=== PATIENT | female | born 2000 | race Hispanic/Latino ===

== ENCOUNTER 2021-09-30 09:28 | Emergency (ER) | payer MEDICAID ==
[~2021-09-30] VITALS: Ht 162.6 cm; Wt 49.4 kg
[2021-09-30 09:53] LABS: APPEARANCE,URINE CLEAR (CLEAR); BILIRUBIN,URINE NEGATIVE (NEGATIVE); COLOR,URINE YELLOW (YELLOW); GLUCOSE, URINE (UA) NEGATIVE (NEGATIVE); HCG,QUALITATIVE URINE POSITIVE (NEGATIVE); KETONES,URINE 15 mg/dL (NEGATIVE); LEUKOCYTE ESTERASE ,URINE NEGATIVE (NEGATIVE); NITRATE,URINE NEGATIVE (NEGATIVE); OCCULT BLOOD,URINE MODERATE (NEGATIVE); PROTEIN,URINE NEGATIVE (NEGATIVE); UROBILINOGEN,URINE 0.2 mg/dL (0.2-1.0)
[2021-09-30 09:58] LABS: BACTERIA,URINE Rare /HPF (None Seen); RBC,URINE 0-1 /HPF (0-1); SQUAMOUS EPITHELIAL CELL,UR Rare /HPF (0-2); WBC,URINE 0-1 /HPF (0-1)
[2021-09-30] MEDS ORDERED: 0.9%NACL 1000ML 1,000 ML IV SCH (10:00)
[2021-09-30 10:08] LABS: BASOPHILS % (AUTO) 0.5 % (0.0-5.0); EOSINOPHILS % (AUTO) 0.5 % (0.0-8.0); HEMATOCRIT 35.5 % (36-48); LYMPHOCYTES % (AUTO) 23.7 % (21.0-51.0); MEAN CORPUSCULAR HEMOGLOBIN 28.6 pg (27.0-33.0); MEAN CORPUSCULAR HGB CONC 33.8 g/dL (32.0-36.0); MEAN CORPUSCULAR VOLUME 84.7 fL (80-100); MONOCYTES % (AUTO) 5.7 % (3.0-13.0); NEUTROPHILS % (AUTO) 69.1 % (40.0-77.0); PLATELET COUNT (AUTO) 219 K/uL (130-400); RED BLOOD CELL COUNT(AUTO) 4.19 MIL/uL (4.00-5.50); RED CELL DISTRIBUTION WIDTH 13.1 % (11.0-15.5); WHITE BLOOD COUNT (AUTO) 7.9 K/uL (4.8-10.8)
[2021-09-30 10:17] LABS: CREATININE 0.6 mg/dL (0.5-1.5); POTASSIUM 3.2 mmol/L (3.5-5.1)
[2021-09-30 10:48] LABS: ALBUMIN 3.9 g/dL (3.5-5.0); TOTAL PROTEIN, SERUM 7.9 g/dL (6.0-8.3)
[2021-09-30 12:20] VITALS: BP 104/67
== END 2021-09-30 12:31 | disposition home or self-care (01) ==
LOC: EDH 09:28
DX: O20.0 Threatened abortion (principal); Z3A.09 9 weeks gestation of pregnancy
CPT/HCPCS: 99284; 96360; 76801; 80053; 84702; 85025; 86850; 86900; 86901; 81001; 81025; 36415; J7030; 96361

== ENCOUNTER 2023-04-21 10:27 | Observation (INO) | payer MEDICAID ==
[~2023-04-21] VITALS: Ht 162.6 cm; Wt 69.9 kg
[~2023-04-21 10:27] MED LIST: FERR-72 PO; IBUP-2088 PO; PREN1TAB26 PO
[2023-04-21 11:20] VITALS: BP 111/68; PULSE 94; RESP 16
[2023-04-21 13:14] LABS: APPEARANCE,URINE CLOUDY (CLEAR); BILIRUBIN,URINE NEGATIVE (NEGATIVE); COLOR,URINE YELLOW (YELLOW); GLUCOSE, URINE (UA) TRACE mg/dL (NEGATIVE); KETONES,URINE NEGATIVE (NEGATIVE); LEUKOCYTE ESTERASE ,URINE 500 Leu/uL (NEGATIVE); NITRATE,URINE NEGATIVE (NEGATIVE); OCCULT BLOOD,URINE NEGATIVE (NEGATIVE); PH,URINE 6.5 (5.0-8.0); PROTEIN,URINE 30 mg/dL (NEGATIVE)
[2023-04-21 13:21] LABS: ADD UA MICROSCOPIC YES
[2023-04-21 13:22] LABS: BACTERIA,URINE FEW /HPF (None Seen); MUCUS,URINE FEW LPF (None Seen); SQUAMOUS EPITHELIAL CELL,UR MANY /HPF (0-2)
== END 2023-04-21 13:00 | disposition home or self-care (01) ==
LOC: EDH 10:27 → LDH 10:28
PROVIDERS: ADMIT Obstetrics & Gynecology; ATTEND Obstetrics & Gynecology
DX: O26.893 Other specified pregnancy related conditions, third trimester (principal); N89.8 Other specified noninflammatory disorders of vagina; Z3A.35 35 weeks gestation of pregnancy; Z79.899 Other long term (current) drug therapy
CPT/HCPCS: 87088; 81001; G0378

== ENCOUNTER 2023-05-07 16:59 | Observation (INO) | payer MEDICAID ==
[~2023-05-07] VITALS: Ht 162.6 cm; Wt 68.9 kg
[2023-05-07 16:59] VITALS: BP 107/72; PULSE 76; RESP 20
[2023-05-07 17:53] LABS: APPEARANCE,URINE CLEAR (CLEAR); BILIRUBIN,URINE NEGATIVE (NEGATIVE); COLOR,URINE LIGHT-YELLOW (YELLOW); GLUCOSE, URINE (UA) NEGATIVE (NEGATIVE); KETONES,URINE NEGATIVE (NEGATIVE); LEUKOCYTE ESTERASE ,URINE 25 Leu/uL (NEGATIVE); NITRATE,URINE NEGATIVE (NEGATIVE); OCCULT BLOOD,URINE NEGATIVE (NEGATIVE); PROTEIN,URINE 10 mg/dL (NEGATIVE); UROBILINOGEN,URINE 0.2 mg/dL (0.2-1.0)
[2023-05-07 17:55] LABS: ADD UA MICROSCOPIC YES
[2023-05-07 17:57] LABS: BACTERIA,URINE RARE /HPF (None Seen); MUCUS,URINE RARE LPF (None Seen); SQUAMOUS EPITHELIAL CELL,UR RARE /HPF (0-2)
== END 2023-05-07 18:33 | disposition home or self-care (01) ==
LOC: EDH 16:59 → LDH 17:00
PROVIDERS: ADMIT Obstetrics & Gynecology; ATTEND Obstetrics & Gynecology
DX: O62.9 Abnormality of forces of labor, unspecified (principal); O26.893 Other specified pregnancy related conditions, third trimester; M54.9 Dorsalgia, unspecified; Z3A.38 38 weeks gestation of pregnancy
CPT/HCPCS: 81001; G0379; G0378

== ENCOUNTER 2023-05-17 01:11 | Inpatient (IN) | payer MEDICAID ==
[~2023-05-17] VITALS: Ht 162.6 cm; Wt 72.1 kg
[2023-05-17 01:34] LABS: BILIRUBIN,URINE NEGATIVE (NEGATIVE); COLOR,URINE LIGHT-YELLOW (YELLOW); GLUCOSE, URINE (UA) NEGATIVE (NEGATIVE); KETONES,URINE NEGATIVE (NEGATIVE); LEUKOCYTE ESTERASE ,URINE 250 Leu/uL (NEGATIVE); NITRATE,URINE NEGATIVE (NEGATIVE); OCCULT BLOOD,URINE SMALL (NEGATIVE); PH,URINE 6.5 (5.0-8.0); PROTEIN,URINE NEGATIVE (NEGATIVE); UROBILINOGEN,URINE 0.2 mg/dL (0.2-1.0)
[2023-05-17 01:50] LABS: ADD UA MICROSCOPIC YES; APPEARANCE,URINE SLIGHTLY CLOUDY (CLEAR)
[2023-05-17 01:52] LABS: BACTERIA,URINE MANY /HPF (None Seen); MUCUS,URINE RARE LPF (None Seen); RBC,URINE 51-100 /HPF (0-1); SQUAMOUS EPITHELIAL CELL,UR MOD /HPF (0-2); UNCLASSIFIED CRYSTAL 1 /HPF (None Seen)
[2023-05-17] MEDS: LACTATED RINGERS 1000ML IV PRN (02:06)
[2023-05-17 02:20] VITALS: BP 113/62
[2023-05-17] MEDS ORDERED: LACTATED RINGERS 500 ML 500 ML IV PRN (02:30)
[2023-05-17] MEDS ORDERED: PROMETHAZINE HCL 25 MG/ML 1ML AMPULE IM PRN (02:30)
[2023-05-17] MEDS ORDERED: MEPERIDINE-PF 50 MG/ML SYG IVP PRN (02:30)
[2023-05-17] MEDS ORDERED: NALOXONE HCL 0.4 MG/1 ML ML IV PRN (02:30)
[2023-05-17] MEDS ORDERED: ROPIVACAINE 0.2% EP SCH (02:30)
[2023-05-17] MEDS ORDERED: OXYTOCIN-LR 30 UNITS/500ML 500 ML IV SCH (02:30)
[2023-05-17] MEDS ORDERED: EPHEDRINE SULFATE 50 MG/ML AMPULE IVP PRN (02:30)
[2023-05-17] MEDS ORDERED: ROPIVACAINE 0.2% 2MG/ML 100ML VIAL EP SCH (02:30)
[2023-05-17] MEDS: LACTATED RINGERS 1000ML 1,000 ML IV PRN (02:57)
[2023-05-17 03:00] LABS: MEAN CORPUSCULAR HEMOGLOBIN 22.9 pg (27.0-33.0); MEAN CORPUSCULAR HGB CONC 30.9 g/dL (32.0-36.0); MEAN CORPUSCULAR VOLUME 74.1 fL (80-100); PLATELET COUNT (AUTO) 335 K/uL (130-400); RED BLOOD CELL COUNT(AUTO) 4.59 MIL/uL (4.00-5.50); WHITE BLOOD COUNT (AUTO) 9.6 K/uL (4.8-10.8)
[2023-05-17 05:46] LABS: HIV 1&2 ANTIBODY Non-Reactive (Negative)
[2023-05-17 05:47] LABS: HIV-1 p24 Antigen Non-Reactive (Negative)
[2023-05-17] MEDS: OXYTOCIN-LR 30 UNITS/500ML 500 ML IV SCH ×2 (07:25→11:30)
[2023-05-17 07:27] LABS: RAPID PLASMA REAGIN NONREACTIVE (NONREACTIVE)
[2023-05-17] MEDS ORDERED: LIDOCAINE HCL 1% 20 ML VIAL ONE (10:06)
[2023-05-17] MEDS ORDERED: METHYLERGONOVINE MALEATE 0.2 MG/1 ML ML ONE (10:59)
[2023-05-17] MEDS ORDERED: LANOLIN 30GM OINTMENT TP PRN (11:30)
[2023-05-17] MEDS ORDERED: ACETAMINOPHEN 325 MG TAB PO PRN (11:30)
[2023-05-17] MEDS: ACETAMINOPHEN WITH CODEINE 1 TAB TAB PO PRN (13:44)
[2023-05-17] MEDS: IBUPROFEN 600 MG TABLET PO PRN (15:46)
[2023-05-17 16:10] VITALS: BP 123/83; PULSE 71; RESP 16
[2023-05-17 19:35] VITALS: BP 100/54; PULSE 72; RESP 18
[2023-05-17] MEDS: DOCUSATE SODIUM 100 MG CAP PO SCH (21:08)
[2023-05-17 23:50] VITALS: BP 110/54; PULSE 82; RESP 18
[2023-05-18 04:05] VITALS: BP 106/57; PULSE 80; RESP 18
[2023-05-18 06:21] LABS: HEMATOCRIT 26.6 % (36-48); MEAN CORPUSCULAR HEMOGLOBIN 22.8 pg (27.0-33.0); MEAN CORPUSCULAR HGB CONC 31.2 g/dL (32.0-36.0); MEAN CORPUSCULAR VOLUME 73.1 fL (80-100); RED BLOOD CELL COUNT(AUTO) 3.64 MIL/uL (4.00-5.50); RED CELL DISTRIBUTION WIDTH 15.4 % (11.0-15.5); WHITE BLOOD COUNT (AUTO) 9.7 K/uL (4.8-10.8)
[2023-05-18] MEDS: BENZOCAINE/LANOLIN/ALOE VERA 60 ML AEROSOL TP PRN (06:23)
[2023-05-18] MEDS: WITCH HAZEL 1 PAD TP PRN (06:24)
[2023-05-18 07:15] VITALS: BP 114/76; PULSE 77; RESP 18
[2023-05-18] MEDS: DIPH,PERTUSS(ACELL),TET VAC/PF 0.5 ML VIAL IM PRN (11:09)
[2023-05-18] MEDS: FLU VACC QS2023-24(6MOS UP)/PF 60 MCG/0.5 ML IM ONE (11:10)
== END 2023-05-18 12:35 | disposition home or self-care (01) | DRG 560 ==
LOC: EDH 01:11 → OBSVTOIN 01:12 → LDH 01:12 → WSH 14:12 → UNDODISIN 05-18 12:35
PROVIDERS: ADMIT Obstetrics & Gynecology; ATTEND Obstetrics & Gynecology
PROC: 10E0XZZ Delivery of Products of Conception, External Approach (ICD-10-PCS; principal; 2023-05-17)
PROC: 0HQ9XZZ Repair Perineum Skin, External Approach (ICD-10-PCS; 2023-05-17)
PROC: 3E0R3BZ Introduction of Anesthetic Agent into Spinal Canal, Percutaneous Approach (ICD-10-PCS; 2023-05-17)
PROC: 00HU33Z Insertion of Infusion Device into Spinal Canal, Percutaneous Approach (ICD-10-PCS; 2023-05-17)
PROC: 3E0234Z Introduction of Serum, Toxoid and Vaccine into Muscle, Percutaneous Approach (ICD-10-PCS; 2023-05-18)
PROC: 3E02340 Introduction of Influenza Vaccine into Muscle, Percutaneous Approach (ICD-10-PCS; 2023-05-18)
DX: O69.81X0 Labor and delivery complicated by cord around neck, without compression, not applicable or unspecified (principal); Z37.0 Single live birth; O70.0 First degree perineal laceration during delivery; Z3A.39 39 weeks gestation of pregnancy; Z23 Encounter for immunization
CPT/HCPCS: 36415; 81001; 85027; 86592; 86701; 86850; 86900; 86901; 87088; 87340; 87390; 90715; A4314; A4351; G0378; J2210; J2795; J3490; Q2035; Q2038